=== PATIENT | male | born 1980 | race Two or more races ===

== ENCOUNTER 2019-03-14 14:04 | Emergency (ER) | payer OTHER ==
[~2019-03-14] VITALS: Ht 180.3 cm; Wt 57.6 kg
[2019-03-14 14:13] VITALS: BP 125/84
== END 2019-03-14 15:57 | disposition home or self-care (01) ==
LOC: ER 14:09
DX: S61.002A Unspecified open wound of left thumb without damage to nail, initial encounter (principal); W25.XXXA Contact with sharp glass, initial encounter; Y93.89 Activity, other specified; Y92.89 Other specified places as the place of occurrence of the external cause; Y99.0 Civilian activity done for income or pay